=== PATIENT | female | born 1940 | race Caucasian/White ===

== ENCOUNTER 2017-01-22 09:00 | Inpatient (IN) ==
[2017-01-17 14:42] LABS: Appearance,Urine CLEAR; Bilirubin,Urine NEG (NEG); Color,Urine YELLOW; Glucose,Urine (UA) NEGATIVE (NEG); Leukocyte Esterase,Urine NEG /uL (NEG); Nitrate,Urine NEG (NEG); Protein,Urine NEG (NEG); Specific Gravity,Urine 1.024 (1.000-1.035); Urine Blood NEG mg/dL (<0.03); Urobilinogen,Urine NEG (NEG)
[2017-01-17 15:17] LABS: Blood Urea Nitrogen 20 mg/dl (8-23)
[2017-01-17 16:52] LABS: Basophils # (Auto) 0 K/mcL (0.0-0.3); Basophils % (Auto) 0.5 % (0.0-2.0); Eosinophils # (Auto) 0.6 K/mcL (0.0-0.7); Granulocytes % (Auto) 52.7 % (38.0-78.0); Lymphocytes # (Auto) 3.1 K/mcL (1.5-4.8); Lymphocytes % (Auto) 32.7 % (15.5-49.0); Mean Cell Volume 86.9 fL (80.0-100.0); Mean Corpuscular HGB Conc 32.8 g/dL (31.0-36.0); Mean Corpuscular Hemoglobin 28.5 pg (26.0-34.0); Monocytes # (Auto) 0.8 K/mcL (0.1-0.9); Monocytes % (Auto) 8.1 % (1.0-12.0); Platelet Count 215 K/mcL (140-440); RBC 4.84 M/mcL (4.00-5.20); Red Cell Distribution Width 12.8 % (11.5-14.5)
[~2017-01-22 09:00] MED LIST: CELECOXIB 200 MG CAPSULE PO SCH; KETOROLAC 30 MG, ROPIVACAINE HCL/PF 49.5 ML, EPINEPHrine 0.5 MG, 0.9 % SODIUM CHLORIDE ... IJ SCH; PREGABALIN 75 MG CAPSULE PO SCH; ceFAZolin 1 GM VIAL IV SCH; oxyCODONE 10 MG TAB.ER.12H PO SCH
[2017-01-22] MEDS ORDERED: ONDANSETRON 4 MG/2 ML VIAL IV ONE (11:40)
[2017-01-22] MEDS ORDERED: ROPIVACAINE HCL/PF 30 ML VIAL IJ ONE (11:40)
[2017-01-22] MEDS ORDERED: PROPOFOL 200 MG/20 ML VIAL IV ONE (11:40)
[2017-01-22] MEDS ORDERED: PHENYLEPHRINE 10 MG/ML VIAL IV ONE (11:40)
[2017-01-22] MEDS ORDERED: DEXAMETHASONE 10 MG/ML VIAL IV ONE (11:40)
[2017-01-22] MEDS ORDERED: LIDOCAINE HCL/PF 100 MG/5 ML SYRINGE IV ONE (11:40)
[2017-01-22] MEDS ORDERED: TRANEXAMIC ACID 1,000 MG/10 ML VIAL IV ONE (11:40)
[2017-01-22] MEDS ORDERED: MIDAZOLAM 5 MG/5 ML VIAL IV ONE (11:40)
[2017-01-22] MEDS ORDERED: GLYCOPYRROLATE 0.2 MG/ML VIAL IV ONE (11:40)
[2017-01-22] MEDS ORDERED: GENTAMICIN SULFATE 800 MG/20 ML VIAL IR ONE (12:13)
[2017-01-22] MEDS ORDERED: diphenhydrAMINE 50 MG/ML VIAL IV PRN (12:35)
[2017-01-22] MEDS ORDERED: ePHEDrine 50 MG/ML AMPUL IV PRN (12:35)
[2017-01-22] MEDS ORDERED: LACTATED RINGERS 250 ML IV PRN (12:35)
[2017-01-22] MEDS ORDERED: HYDROmorphone 2 MG/ML SYRINGE IV PRN (12:35)
[2017-01-22] MEDS ORDERED: BENZOCAINE/MENTHOL 1 LOZENGE PO PRN ×2 (12:35→13:19)
[2017-01-22] MEDS ORDERED: FLUMAZENIL 0.1 MG/ML ML IV PRN (12:35)
[2017-01-22] MEDS ORDERED: MEPERIDINE 50 MG/ML SYRINGE IM PRN (12:35)
[2017-01-22] MEDS ORDERED: fentaNYL 100 MCG/2 ML VIAL IV PRN (12:35)
[2017-01-22] MEDS ORDERED: NALOXONE HCL 0.4 MG/ML VIAL IV PRN (12:35)
[2017-01-22] MEDS ORDERED: METHOCARBAMOL 1,000 MG/10 ML VIAL IV PRN (12:35)
[2017-01-22] MEDS ORDERED: MEPERIDINE 25 MG/ML SYRINGE IV PRN (12:35)
[2017-01-22] MEDS ORDERED: IPRATROPIUM/ALBUTEROL 3 ML AMPUL.NEB NEB PRN (12:35)
[2017-01-22] MEDS ORDERED: PROMETHAZINE 25 MG/ML VIAL IV PRN (12:35)
[2017-01-22] MEDS ORDERED: PROMETHAZINE 25 MG/ML VIAL IM PRN ×2 (12:35→13:19)
[2017-01-22] MEDS ORDERED: ONDANSETRON 4 MG/2 ML VIAL IV PRN ×2 (12:35→13:19)
[2017-01-22] MEDS ORDERED: LACTATED RINGERS 1,000 ML IV SCH (12:45)
[2017-01-22] MEDS ORDERED: KETOROLAC 30 MG, ROPIVACAINE HCL/PF 49.5 ML, EPINEPHrine 0.5 MG, 0.9 % SODIUM CHLORIDE ... IJ ONE (12:57)
[2017-01-22] MEDS ORDERED: TRANEXAMIC ACID 1,000 MG/10 ML VIAL IV SCH (13:19)
[2017-01-22] MEDS ORDERED: METHOCARBAMOL 750 MG TABLET PO PRN (13:19)
[2017-01-22] MEDS ORDERED: HYDROcodone/APAP 10/325MG TABLET PO PRN (13:19)
[2017-01-22] MEDS ORDERED: BISACODYL 10 MG SUPP.RECT PR PRN (13:19)
[2017-01-22] MEDS ORDERED: FLEETS ADULT ENEMA PR PRN (13:19)
[2017-01-22] MEDS ORDERED: MAGNESIUM HYDROXIDE 30 ML ORAL.SUSP PO PRN (13:19)
[2017-01-22] MEDS ORDERED: POLYETHYLENE GLYCOL 3350 17 GM PACKET PO PRN (13:19)
--- NOTE | 2017-01-22 13:19 | Brief Operative Note ---
Date of procedure: 01/22/17 Pre-op diagnosis: left knee osteoarthritis Post-op diagnosis: same Procedure: left total knee arthroplasty Grafts/Implants: Yes Anesthesia: spinal Complications: none Surgeon: Paulo West Owner Operator: Armando Coto Estimated blood loss (cc): 100 Tourniquet Time (Minutes): 60 Specimens Removed/Pathology: none sent Condition: stable Disposition: PACU
--- NOTE | 2017-01-22 14:27 | Operative Note ---
DATE OF OPERATION: 01/22/2017 PREOPERATIVE DIAGNOSIS: Degenerative joint disease, left knee. POSTOPERATIVE DIAGNOSIS: Degenerative joint disease, left knee. PROCEDURE: Left total knee arthroplasty. SURGEON: Kiet West M.D. METAL OR WOOD BLOCKER SURGEON: Armando Coto PA-C. ANESTHESIA: Spinal with LMA assist. ESTIMATED BLOOD LOSS: 100 mL. COMPLICATIONS: None noted. SPECIMENS REMOVED: None. DRAINS: None. TOURNIQUET TIME: 1 hour at 300 mmHg. IMPLANTS: DePuy CMW2 bone cement 20 grams x5; DePuy Attune femoral posterior stabilized size 7 left cemented; DePuy Attune tibial insert fixed bearing posterior stabilized size 7, 6 mm AOX; DePuy Attune tibial base fixed bearing size 5 cemented; DePuy Attune patella medialized dome 38 mm cemented AOX. INDICATIONS: The patient has had a long-standing history of worsening pain in the knee that has failed conservative treatment. Radiographs have confirmed advanced degenerative joint disease. After a long discussion about treatment options, the patient elected to proceed with a knee arthroplasty. The risks and benefits were discussed with the patient in detail including, but not limited to, the risks of anesthesia, problems with the heart or lungs related to anesthesia, infection, compromise or injury to the nerves and blood vessels, deep venous thrombosis, pulmonary embolism, pneumonia, continued pain after surgery, worsening pain or symptoms after surgery, swelling, loss of motion, instability, leg length discrepancy, and need for repeat surgery. DESCRIPTION OF PROCEDURE: The patient was seen in the pre-anesthesia waiting room where all questions were answered and the correct side and site were identified and marked. The patient was transferred to the operating room and administered the anesthetic and given pre-operative antibiotics. A time-out was then called. The extremity was prepped and draped, exsanguinated, and the tourniquet was inflated to 300 mmHg. A midline skin incision was then made with a standard medial parapatellar arthrotomy. Debridement of the menisci, ACL, and PCL was performed followed by balancing releases in the medial lateral plane. We then established intramedullary access to both the femur and tibia in a standard fashion. The femoral guide jack was initially placed with the distal femoral guide, pinned into place, and the distal femoral cut was performed and checked with a flat plate. We then turned our attention to the tibia. The intramedullary guide was placed with the proximal tibial cutting block. The block was appropriately positioned off the affected side, varus and valgus was checked with the extra-medullary guide, and the block was pinned into place. The proximal tibial cut was performed and the tibia was prepared for the tibial implant with appropriate rotation. The tibia, femur, and posterior compartment were debrided of osteophytes, loose bodies, and meniscal fragments We then used the gap balancing technique to balance extension with the first two cuts and good balancing was obtained with a 10 millimeter gap block. We turned our attention back to the femur and used the referencing block and implant to size appropriately. Using the gap balancing technique for the flexion space we set our rotation of the femur off the tibial cut. Anesthesia gave the patient 1 gram of Tranexamic Acid via an intravenous route. We placed the 4 in 1 cutting block and made anterior, posterior, and chamfer cuts. Box plasty cuts were then made in a standard fashion for the posterior stabilized prosthesis. We then completed osteophyte release and posterior capsule release from the posterior compartment. Trials were placed and we chose the polyethylene insert thickness that provided the best stability in all planes. With the trials in place, we did a measured resection for a resurfacing patella. We sized the patella and placed the patella trial and performed a lateral facetectomy with the saw and rongeur. Good tracking was obtained. We removed all trials, irrigated and dried all cut surfaces. We cemented the components into place including tibia, femur and patella. We placed a trial liner and held the knee in full extension with the patella compressed while the cement cured. We then removed all excess cement and placed the final polyethylene tibiofemoral component. Irrigation with 3 liters of antibiotic saline was then performed using jet-lavage. We let the tourniquet down and coagulated bleeding vessels. We injected a 100 cubic centimeter volume including Ropivacaine 49.25 cubic centimeters at 5 milligrams per cubic centimeter, Ketorolac 30 milligrams, and Epinephrine 0.5 milligrams into 100 cubic centimeters volume of normal saline. We placed a deep drain and closed the retinaculum with looped #0 Maxon. We closed the subcutaneous tissue and skin in layers out to arianna in the skin. A sterile pressure dressing was applied. All needle and sponge counts were correct. The patient was transferred to the recovery room in stable condition. PAUL:farnaz Job ID: [id number] Doc ID: [id number] Kiet West MD
[2017-01-22] MEDS: 0.9 % SODIUM CHLORIDE 1,000 ML IV SCH ×2 (14:55→23:56)
[2017-01-22] MEDS: 0.9 % SODIUM CHLORIDE 10 ML SYRINGE IV SCH ×2 (15:36→23:23)
--- NOTE | 2017-01-22 16:02 | XRay Report ---
HISTORY: Reason for Exam:Post-Op Total Knee FINDINGS: There is a well positioned total knee prosthesis. No fracture or abnormal soft tissue calcification are present. IMPRESSION: Well-positioned left knee prosthesis Interpreted and Authenticated by: Jose Daniel Martino 01/22/17
[2017-01-22] MEDS: KETOROLAC 15 MG/ML VIAL IV SCH ×2 (17:50→23:56)
[2017-01-22] MEDS: NORTRIPTYLINE 10 MG CAPSULE PO SCH (20:29)
[2017-01-22] MEDS: ceFAZolin 1 GM VIAL IV SCH (20:29)
[2017-01-22] MEDS: SENNOSIDES 1 TABLET PO SCH (20:30)
[2017-01-22] MEDS: ASPIRIN 325 MG ENTERIC COATED TABLET PO SCH (20:30)
[2017-01-22] MEDS: DOCUSATE SODIUM 100 MG CAPSULE PO SCH (20:30)
[2017-01-23] MEDS: ceFAZolin 1 GM VIAL IV SCH (05:04)
--- NOTE | 2017-01-23 06:30 | Orthopedic Progress Note ---
Subjective Patient information: Note initiated : 01/23/17 at 6:28 am Service Date, if different from initiated Date: [] Patient: Jackie Yancey 76 y/o F admitted on 01/22/17 for Left Total Knee Arthroplasty *Depuy*. Chief Complaint: [] Interval history: doing well. confused. not complaining of pain Objective Vital signs: Vital Signs Temp Pulse Resp BP Pulse Ox 01/23/17 04:00 97.8 F 119 H 16 134/72 92 01/23/17 00:00 98.2 F 110 H 16 140/85 91 01/22/17 19:56 97.8 F 101 H 16 115/72 92 01/22/17 16:00 97.8 F 16 127/78 98 01/22/17 15:30 97.6 F 16 124/81 98 01/22/17 15:15 97.8 F 16 135/71 95 01/22/17 15:00 98.0 F 16 126/83 97 01/22/17 14:45 97.6 F 16 129/87 97 01/22/17 14:20 93 H 20 113/60 95 01/22/17 14:05 90 20 113/60 97 01/22/17 13:50 97.3 F 89 11 L 99/51 99 01/22/17 09:20 97.9 F 18 136/73 99 Intake and Output 01/22/17 01/23/17 01/23/17 21:59 05:59 13:59 Intake Total 1525 / 1525 Output Total 1000 / 1000 450 / 450 Balance -1000 / -1000 1075 / 1075 Intake: IV 1000 / 1000 Sodium Chloride 0.9% 1, 1000 / 1000 000 ml @ 125 mls/hr IV . Q8H JANNA Rx#:[id number] Oral 525 / 525 Output: Urine Catheter Amount 1000 / 1000 Void Amount 450 / 450 Other: # Voids 1 1 Weight 169 lb Intake & Output: Intake & Output 01/22/17 01/23/17 01/23/17 21:59 05:59 13:59 Intake Total 1525 / 1525 Output Total 1000 / 1000 450 / 450 Balance -1000 / -1000 1075 / 1075 Weight 169 lb Intake: IV 1000 / 1000 Sodium Chloride 0.9% 1, 1000 / 1000 000 ml @ 125 mls/hr IV . Q8H JANNA Rx#:[id number] Oral 525 / 525 Output: Urine Catheter Amount 1000 / 1000 Void Amount 450 / 450 Other: # Voids 1 1 Incision: Yes healing Incision clean and dry: Yes Dressing: Yes clean, Yes dry, Yes intact Weight bearing status: full Neurological exam IM: Yes alert, Yes normal gait, Yes oriented X3, Yes neurovascular intact Extremities exam IM: No calf tenderness, Yes Foot pink and warm, Yes neurovascular intact - Labs CBC & BMP: 01/17/17 13:37 01/17/17 13:37 Labs: Orthopedic Labs 01/17/17 13:37 PT 13.7 INR 1.0 01/17/17 13:37 Hgb 13.8 Hct 42.1 Assessment and Plan (1) Total knee replacement status pod 1 s/p tka wbat pain control dvt prophylaxis d/c planning Status: Acute Qualifiers:
[2017-01-23] MEDS: KETOROLAC 15 MG/ML VIAL IV SCH ×3 (08:39→17:50)
[2017-01-23] MEDS: LEVOTHYROXINE SODIUM 112 MCG TABLET PO SCH (08:40)
[2017-01-23] MEDS: 0.9 % SODIUM CHLORIDE 10 ML SYRINGE IV SCH ×3 (08:40→22:11)
[2017-01-23] MEDS: DOCUSATE SODIUM 100 MG CAPSULE PO SCH ×2 (08:40→21:54)
[2017-01-23] MEDS: ASPIRIN 325 MG ENTERIC COATED TABLET PO SCH ×2 (08:40→21:54)
[2017-01-23] MEDS: traMADol 50 MG TABLET PO PRN ×2 (09:41→15:27)
--- NOTE | 2017-01-23 19:58 | Internal Medicine Consult Note ---
Medical - CN: HPI - Data of Consult Patient: new to practice Requesting Physician: Paulo West Primary Care Provider: Jann Galloway Family Provider: Jann Galloway - Consult Narrative Reason for consult: postop confusion,tachycardia History of present illness: Ms. Yancey is a 76 year old female was admitted n January 22 for a left total knee arthroplasty. The surgery went well. However the patient has beenquite confused ever since the surgery. the nurses note the patient keeps thinking that she is at home she has pulled out her IV, and removed her surgical dressing. The patient has received IV Toradol and by mouth Ultram for pain control, but fairly minimal doses of those. she is refusing IV fluids, and urine output has dropped off today. I met with her this evening, and she is clearly confused. She stated several times that she was at home and not in the hospital. When she was convinced she was in the hospital, she could not come up with the name of the hospital for 10 or 15 minutes. She knew it was the of the , but could not recall the name of the month. She did know the year was 2016. She stated she lives with her sister, which she does not. She asked several times if it was time for "Dr. Morrow" on TV. She did not seem to believe that it was late in the evening as opposed to early in the day. when asked about symptoms, she stated she was having a lot of pain in her left knee, but then radiated as 5 out of 10. While she was talking to me she repeatedly flexed and extended her knee, and it did not seem to bother her. she denies any past history of memory issues or confusion. She is reporting some itchy ears today and also feels that her voice is a little hoarse. She reports a dry mouth. She otherwisedenies headaches or dizziness, blurry vision , sore throat, chest pain or palpitations, shortness of breath, abdominal pain, nausea or vomiting. She reports occasional diarrhea at home, but none recently. She denies dysuria. unfortunately, her history is clearly unreliable. I did touch base with her sister,Darlin Arrington. Mrs. Arrington says that her sister has never had any memory issues that she is aware of. Mrs. Arrington, however, lives in [place], [place], and it appears does not see the patient all that often. past medical history: Severe right knee osteoarthritis Depression History of peptic ulcer disease hypothyroidism Past surgical history: Right knee arthroscopy, right hip replacement, left hip replacement, cholecystectomy, surgery for perforated ulcer home medications: Nortriptyline 10 mg daily at bedtime Levothyroxin 112 g daily Ocuvite multivitamin daily current inpatient medications: norco 10/325 every 4 hours when necessaryAspirin 325 mg twice a day ducolax suppository when necessary Colace 100 mg twice a day Dilaudid every 2 hours when necessary Toradol 15 mg every 6 hours Synthroid 0.112 daily Milk of magnesia when necessary Robaxin 750 mg every 6 hours when necessary Objective on 10 mg daily at bedtime Zofran 4 mg every 4 hours when necessary MiraLAX 17 g daily when necessary Phenergan 12.5 mg IM every 6 hours when necessary Senna 2 tabs daily at bedtime Fleets enema when necessary Cepacol throat lozenges when necessary Tramadol every 4 hours when necessary allergies: No known drug allergies Family history: father had OR. Mother had osteoporosis.the patient notes her mother also had severe osteoarthritis. She has one sister who is alive and well. Social history: Patient denies use of alcohol, drugs, tobacco . According to her sister, she lives alone. She does have a small dog. CC: Paulo West Medical - CN: Meds Home Medications Medication Instructions Recorded Confirmed Type Levothyroxine Sodium [Levoxyl] 112 mcg PO ACB 01/17/17 01/22/17 History Nortriptyline [Pamelor] 10 mg PO HS 01/17/17 01/22/17 History Vit A,C & E/Lutein/Minerals 1 tab PO DAILY 01/17/17 01/22/17 History [Ocuvite] Allergies Allergy/AdvReac Type Severity Reaction Status Date / Time No Known Drug Allergies Allergy Verified 02/15/16 15:43 Medical - CN: Exam - Constitutional Vitals: Temp Pulse Resp BP Pulse Ox 97.7 F 119 H 16 94/58 95 01/23/17 16:00 01/23/17 04:00 01/23/17 16:00 01/23/17 16:00 01/23/17 17:06 on exam, she is a well-developed well-nourished elderly female, in no acute distress, but is fidgety,rearranging her bedding and frequently flexing her legs and looking at her dressing.Head: Normocephalic/atraumatic. Eyes: PERRLA, EOMI, anicteric, although there is a bit of a right lid lag. The patient notes she tends to keep her right eye closed due to a long-standing right detached retina Ears: TMs and canals are clear. Pharynx: Pharynx is clear. Teeth are in good repair. Neck:Supple, without obvious lymphadenopathy, JVD, thyromegaly, bruits. Cardiac exam:Shows regular rate and rhythm, with normal S1 and S2. No murmurs, rubs, gallops are noted. Rate is rather tachycardic. Lungs: Are clear to auscultation, without rales, rhonchi, wheezes. Abdomen: Is soft and nontender, without obvious masses. Bowel sounds are normoactive. Extremities: Right leg is normal, without obvious cyanosis, clubbing, edema. Left lower extremity as a waterproof bandage covering her left knee incision. There is no obvious. Incisional erythema or drainage. The entire lower extremity is fairly swollen. Neurologic: The patient is awake, but confused Consciousness seems to wax and wane a bit. She is able to follow most commands Cranial nervesare grossly intact. Motor exam is nonfocal, and shows reasonably good strength. Cerebellar exam shows intact [id number]-ax-[id number] and [id number]-[id number] exam. There is no pronator drift. Skin exam: Does not show obvious rashes or other worrisome lesions. Medical - CN: Result - Labs CBC & Chem 7: 01/23/17 20:32 01/23/17 20:32 Labs: Short CBC 01/23/17 Range/Units 13:48 Hgb 10.6 L (12.0-15.0) g/dL Hct 31.8 L (36.0-48.0) % January 23: EKG: Shows normal sinus rhythm at a rate of 93, without acute ischemic changes. CBC, inpatient panel,.BNP- are pending. Troponin is normal at less than 0.01 urinalysis from January 17 was normal. January 17, 2017:EKG:Normal sinus rhythm at a rate of 82, without obvious ischemic changes. Medical - CN: A/P (1) Delirium due to medical condition with behavioral disturbance Status: Acute (2) Tachycardia Status: Acute (3) Sleep disturbance Status: Acute (4) History of duodenal ulcer Status: Chronic - Narrative A/P Narrative: #1. Neurologic. -This patient appears to be suffering from an acute medical delirium. I suspect this is due to effects of anesthesia and postop medications. However, she could certainly have an undiagnosed underlying dementia. She did not sleep last night, and this is likely aggravating things. -I asked the nurses to go ahead and give her IV Dilaudid for her knee pain, in an effort to both control pain and to help her sleep. -Discontinue tramadol in case she is reacting to this -Toradol should be discontinued soon. -rule out other occult issues,check urinalysis and chest x-ray , BNP. check follow-up chemistries and CBC. -sensorium does not clear soon, consider head CT. -symptoms do not seem consistent with PE, as She is not short of breath ,does not have chest pain, and O2 saturations on room air are normal. -urine output is decreasing, and patient has been refusing IV fluids and according to nurses not drinking oral fluids very well. she is also tachycardic , which could indicate a low volume status. Once she gets to sleep, we will resume IV fluids. #2. GI. Patient has a history of a perforated duodenal ulcer. Aspirin may not be the best medication for DVT prophylaxis, for her . I would consider using either subcutaneous Lovenox or Coumadin, as these are less likely to cause recurrent ulcers. -Add proton pump inhibitor. #3. Hypothyroidism. continue levothyroxine. #4.detached retina. Thank you for asking me to evaluate this patient. I will be happy to follow her along with you. approximately 60 minutes was spent this evening, reviewing patient's old records , interviewing and examining her, discussing plan of care with nursing staff, and writing orders.
[2017-01-23] MEDS: HYDROmorphone 2 MG/ML SYRINGE IV PRN ×3 (20:53→22:04)
[2017-01-23 21:49] LABS: ALT/SGPT 10 U/l (0-40); Albumin 3.2 gm/dL (3.2-5.2); Albumin/Globulin Ratio 1.5 (1.0-2.3); Alkaline Phosphatase 70 U/L (39-117); Bilirubin,Direct < 0.2 mg/dL (0.0-0.3); Blood Urea Nitrogen 25 mg/dl (8-23); Gamma Glutamyl Transpeptidase 8 U/L (5-36); Magnesium 1.9 mg/dL (1.6-2.5); proBNP 565.6 pg/ml (0-450)
[2017-01-23] MEDS: NORTRIPTYLINE 10 MG CAPSULE PO SCH (21:51)
[2017-01-23] MEDS: SENNOSIDES 1 TABLET PO SCH (21:54)
[2017-01-23 21:56] LABS: Basophils # (Auto) 0.1 K/mcL (0.0-0.3); Basophils % (Auto) 0.6 % (0.0-2.0); Eosinophils # (Auto) 0.2 K/mcL (0.0-0.7); Eosinophils % (Auto) 1.2 % (0.0-7.0); Granulocytes % (Auto) 68.6 % (38.0-78.0); Lymphocytes # (Auto) 2.6 K/mcL (1.5-4.8); Lymphocytes % (Auto) 20.7 % (15.5-49.0); Mean Cell Volume 84.6 fL (80.0-100.0); Mean Corpuscular Hemoglobin 27.9 pg (26.0-34.0); Monocytes # (Auto) 1.1 K/mcL (0.1-0.9); Monocytes % (Auto) 8.9 % (1.0-12.0); Platelet Count 168 K/mcL (140-440); RBC 3.58 M/mcL (4.00-5.20); Red Cell Distribution Width 12.2 % (11.5-14.5)
[2017-01-23] MEDS ORDERED: ceFAZolin 1 GM VIAL ONE (23:10)
[2017-01-23] MEDS: 0.9 % SODIUM CHLORIDE 1,000 ML IV SCH (23:19)
[2017-01-24] MEDS: KETOROLAC 15 MG/ML VIAL IV SCH ×3 (01:11→13:45)
[2017-01-24] MEDS: 0.9 % SODIUM CHLORIDE 10 ML SYRINGE IV SCH ×3 (05:32→20:46)
[2017-01-24] MEDS: 0.9 % SODIUM CHLORIDE 1,000 ML IV SCH ×4 (05:58→14:40)
[2017-01-24 06:33] LABS: ALT/SGPT 10 U/l (0-40); Albumin 3.1 gm/dL (3.2-5.2); Albumin/Globulin Ratio 1.3 (1.0-2.3); Alkaline Phosphatase 72 U/L (39-117); Bilirubin,Direct < 0.2 mg/dL (0.0-0.3); Blood Urea Nitrogen 25 mg/dl (8-23); Gamma Glutamyl Transpeptidase 9 U/L (5-36); Uric Acid 5.7 mg/dL (2.5-8.0)
--- NOTE | 2017-01-24 06:46 | Orthopedic Progress Note ---
Subjective Patient information: Note initiated : 01/24/17 at 6:44 am Service Date, if different from initiated Date: [] Patient: Jackie Yancey 76 y/o F admitted on 01/22/17 for Left Total Knee Arthroplasty *Depuy*. Chief Complaint: [] Interval history: doing well. pain under control. seems to be clearing up mentally Objective Vital signs: Vital Signs Temp Pulse Pulse Resp BP Pulse Ox 01/24/17 04:00 98.0 F 92 H 12 107/70 97 01/24/17 02:38 95 H 10 L 96 01/24/17 01:36 10 L 93 01/24/17 01:33 98 H 98 H 10 L 93 01/23/17 20:00 98.0 F 95 H 12 103/92 96 01/23/17 17:06 95 01/23/17 16:00 97.7 F 16 94/58 94 01/23/17 11:54 97.9 F 16 140/79 95 01/23/17 07:10 97.9 F 16 142/78 95 01/23/17 07:02 95 Intake and Output 01/23/17 01/24/17 01/24/17 21:59 05:59 13:59 Intake Total 240 / 240 953 / 953 Output Total 50 / 50 125 / 125 Balance 190 / 190 828 / 828 Intake: IV 833 / 833 Sodium Chloride 0.9% 1, 833 / 833 000 ml @ 125 mls/hr IV . Q8H JANNA Rx#:[id number] Oral 240 / 240 120 / 120 Output: Void Amount 50 / 50 125 / 125 Other: Meal Dinner Percent of Meal Consumed 75% Weight 165 lb 8 oz Intake & Output: Intake & Output 01/23/17 01/24/17 01/24/17 21:59 05:59 13:59 Intake Total 240 / 240 953 / 953 Output Total 50 / 50 125 / 125 Balance 190 / 190 828 / 828 Weight 165 lb 8 oz Intake: IV 833 / 833 Sodium Chloride 0.9% 1, 833 / 833 000 ml @ 125 mls/hr IV . Q8H JANNA Rx#:[id number] Oral 240 / 240 120 / 120 Output: Void Amount 50 / 50 125 / 125 Other: Meal Dinner Percent of Meal Consumed 75% Incision: Yes healing, Yes clean and dry Incision clean and dry: Yes Dressing: Yes clean, Yes dry, Yes intact Weight bearing status: full Neurological exam IM: Yes alert, Yes normal gait, Yes oriented X3, Yes motor sensory intact, Yes neurovascular intact Extremities exam IM: No calf tenderness, Yes Foot pink and warm, Yes neurovascular intact - Labs CBC & BMP: 01/24/17 04:53 01/24/17 04:53 Labs: Orthopedic Labs 01/17/17 13:37 PT 13.7 INR 1.0 01/24/17 01/23/17 01/23/17 04:53 20:32 13:48 Hgb 10.0 L 10.0 L 10.6 L Hct 29.8 L 30.2 L 31.8 L 01/17/17 13:37 Hgb 13.8 Hct 42.1 Assessment and Plan (1) Total knee replacement status pod 2 s/p tka wbat pain control dvt prophylaxis d/c planning- possibly rehab tomorrow Status: Acute Qualifiers:
--- NOTE | 2017-01-24 06:48 | Discharge Summary ---
Ortho Discharge - TKA - Patient Instructions Diet: Regular Diet Activity: activity as tolerated, ambulate with assistive device, weight bearing as tolerated Total Knee Protocol: For Total Knee: Start ROM FRANCISCO with stationary bike or rocking chair. Work on gaining full extension of knee. Posterior dislocation precautions provided. Hip abductor strengthening and gait training instructions provided. Apply Cryocuff as instructed. Dressing Care: May shower in 2 days Patient Education: Total Knee Replacement (DC) Additional Instructions: Discharge Instructions: Do the exercises at home that physical therapy gave you. Take your prescription, photo ID, insurance cards, and current medication list with you to your first physical therapy appointment. Take your prescription to poultry picker any medication or equipment (such as walker, crutches, toilet riser or C.P.M.) Wear comfortable clothing for your physical therapy. Weight bearing as tolerated. You have Dermabond (a dressing with a mesh-like appearance), leave open to air. Do not remove this dressing. You may start showering on post op day #2. The Dermabond dressing can get wet, do not scrub dressing. Pat dry. To avoid constipation while taking any narcotic pain medication, take an over the counter stool softener/laxative. Use your Cryocuff or ice packs as directed, on for 20 minutes at a time throughout the day. This and elevation will help with pain and swelling. Call your physician for fevers above 100.5 or pain not controlled by medication. Your prescriptions are with your discharge information. Some medications were electronically transmitted to your pharmacy of choice. - Problem Maintenance (1) Total knee replacement status Status: Acute Qualifiers: - Follow Up Plan Follow Up Appointments: Tyler Valentin PA-C [Physician Carpet Installation Specialist] - 02/06/17 8:40 am Disposition: Xfer SNF Prognosis: Good Rehab Potential: Good I certify that the patient requires SNF services: Yes Overall status at discharge: patient is progressing back to baseline - Orders For Discharge Prescriptions: Docusate Sodium [Colace] 100 mg PO BID #60 capsule
[2017-01-24] MEDS: PANTOPRAZOLE 40 MG VIAL IV SCH (07:39)
[2017-01-24] MEDS: LEVOTHYROXINE SODIUM 112 MCG TABLET PO SCH (07:41)
[2017-01-24 07:47] LABS: Appearance,Urine HAZY; Bacteria,Urine 0 /hpf (0); Bilirubin,Urine NEG (NEG); Calcium Oxalate Crystals,Urine MOD /hpf (0); Color,Urine YELLOW; Glucose,Urine (UA) NEGATIVE (NEG); Leukocyte Esterase,Urine NEG /uL (NEG); Mucus,Urine MOD /hpf (0); Nitrate,Urine NEG (NEG); Protein,Urine 30 mg/dL (NEG); Specific Gravity,Urine 1.031 (1.000-1.035); Urine Blood NEG mg/dL (<0.03); Urine Hyaline Cast 13 /lpf (0-2); Urine RBC 4 /hpf (0-1); Urine Squamous Epithelial Cell 1 /hpf (0-4); Urine WBC 12 /hpf (0-4); Urobilinogen,Urine NEG (NEG)
--- NOTE | 2017-01-24 08:16 | XRay Report ---
HISTORY: Reason for Exam:confusion, tachycardia FINDINGS: The lungs are clear and well expanded. The heart size and pulmonary vasculature are normal. Patient is rotated to the left which distorts the mediastinum. No mass or adenopathy are detected. IMPRESSION: Normal exam Interpreted and Authenticated by: Jose Daniel Martino 01/24/17
[2017-01-24] MEDS: DOCUSATE SODIUM 100 MG CAPSULE PO SCH ×2 (08:41→20:43)
[2017-01-24] MEDS: ASPIRIN 325 MG ENTERIC COATED TABLET PO SCH ×2 (08:41→20:43)
--- NOTE | 2017-01-24 10:51 | Internal Med Progress Note ---
Medical - PN: Subj Patient information: Note initiated : 01/24/17 at 10:51 am Patient: Jackie Yancey a 76 y/o F admitted on 01/22/17 for Left Total Knee Arthroplasty *Depuy*. Interval history: January 23, 2017:Reason for consult: postop confusion,tachycardia. History of present illness: Ms. Yancey is a 76 year old female was admitted n January 22 for a left total knee arthroplasty. The surgery went well. However the patient has beenquite confused ever since the surgery. the nurses note the patient keeps thinking that she is at home she has pulled out her IV, and removed her surgical dressing. The patient has received IV Toradol and by mouth Ultram for pain control, but fairly minimal doses of those. she is refusing IV fluids, and urine output has dropped off today. I met with her this evening, and she is clearly confused. She stated several times that she was at home and not in the hospital. When she was convinced she was in the hospital, she could not come up with the name of the hospital for 10 or 15 minutes. She knew it was the of the , but could not recall the name of the month. She did know the year was 2016. She stated she lives with her sister, which she does not. She asked several times if it was time for "Dr. Morrow" on TV. She did not seem to believe that it was late in the evening as opposed to early in the day. when asked about symptoms, she stated she was having a lot of pain in her left knee, but then radiated as 5 out of 10. While she was talking to me she repeatedly flexed and extended her knee, and it did not seem to bother her. she denies any past history of memory issues or confusion. She is reporting some itchy ears today and also feels that her voice is a little hoarse. She reports a dry mouth. She otherwise denies headaches or dizziness, blurry vision , sore throat, chest pain or palpitations, shortness of breath, abdominal pain, nausea or vomiting. She reports occasional diarrhea at home, but none recently. She denies dysuria. unfortunately, her history is clearly unreliable. I did touch base with her sister,Darlin Arrington. Mrs. Arrington says that her sister has never had any memory issues that she is aware of. Mrs. Arrington, however, lives in [place], [place], and it appears does not see the patient all that often. January 24: the nurses ended up giving the patient 3 doses of IV Dilaudid last night and she finally fell asleep. may were then able to restart her IV fluids This morning, the patient says she finally did get a good night sleep. She is feeling better. She is more alert and interactive, but continues to have spells of confusion. she did do pretty well with physical therapy this morning. Her sister is here with her this morning, and says that while she seems to have normal conversations, when staff leaves the room, the sister tells her that she thinks the room is Tae and that they are being monitored. her sister is understandably concerned about this unusual behavior, as she has never seen at and the patient before. today, the patient is able to tell me the day, date, year and claims vice president as well as the name of the hospital. She is definitely more alert. She denies subjective fever or chills, sore throat or cough, chest pain , shortness of breath, nausea vomiting or diarrhea, dysuria. She does state she feels like she needs to have a bowel movement. She reports ongoing left knee pain, but continues to flex and extend it at will, such that the dressing is again falling off. Nursing staff reports that she continues to be quite impulsive. - Constitutional Vitals: Vital Signs Temp Pulse Resp BP Pulse Ox 98.3 F 92 H 16 120/67 94 01/24/17 07:27 01/24/17 04:00 01/24/17 07:27 01/24/17 07:27 01/24/17 07:27 Period Temp Pulse Resp BP Sys/Espinosa Pulse Ox Last 24 Hr 97.7 F-98.3 F 92-98 10-16 94-140/58-92 85-97 Intake and Output 01/23/17 01/24/17 01/24/17 21:59 05:59 13:59 Intake Total 240 / 240 953 / 953 460 / 460 Output Total 50 / 50 125 / 125 400 / 400 Balance 190 / 190 828 / 828 60 / 60 Weight 165 lb 8 oz Intake & Output: Intake & Output 05/31/17 06/01/17 06/01/17 21:59 05:59 13:59 Intake Total 240 / 240 953 / 953 460 / 460 Output Total 50 / 50 125 / 125 400 / 400 Balance 190 / 190 828 / 828 60 / 60 Weight 165 lb 8 oz Intake: IV 833 / 833 Sodium Chloride 0.9% 1, 833 / 833 000 ml @ 125 mls/hr IV . Q8H ON LICENSE OF [facility] Rx#:[id number] Oral 240 / 240 120 / 120 460 / 460 Output: Void Amount 50 / 50 125 / 125 400 / 400 Other: Meal Dinner Breakfast Percent of Meal Consumed 75% 100% Feeding Ability Independent # Voids 1 # Bowel Movements 0 I first saw the patient walking in the [place]eters with physical therapy, and she was doing well. I then saw her again in her room, when she was sitting in a chair. She is talkative, alert, cooperative.Neck is supple without obvious lymphadenopathy. Cardiac exam shows regular rate and rhythm. Lungs are clear to auscultation. Abdomen is soft and nontender. extremities:Right lower extremity shows no significant edema. Left lower extremity is quite edematous. incision is covered, without obvious signs of erythema or drainage. she seems to be moving the knee without too much discomfort. neurologic: The patient is much more alert and oriented this morning. Cranial nerves are grossly intact. Motor exam is grossly nonfocal. Unfortunately, her sister reports that she continues to have some paranoid ideation. Medical - PN: Obj Da - Labs CBC & Chem 7: 01/24/17 04:53 01/24/17 04:53 Labs: Abnormal Lab Results 01/24/17 01/24/17 01/24/17 06:36 04:53 04:53 WBC RBC Hgb 10.0 L Hct 29.8 L Gran # Smyth # BUN 25 H Glucose NT-Pro-B Natriuret Pep Total Protein 5.5 L Albumin 3.1 L Urine Protein 30 A Urine Ketones 5/tr A Urine RBC 4 H Urine WBC 12 H Calcium Oxalate Crystal Mod A Hyaline Casts 13 H 01/23/17 01/23/17 01/23/17 20:32 20:32 13:48 WBC 11.6 H RBC 3.58 L Hgb 10.0 L 10.6 L Hct 30.2 L 31.8 L Gran # 8.8 H Smyth # 1.1 H BUN 25 H Glucose 107 H NT-Pro-B Natriuret Pep 565.6 H Total Protein 5.4 L Albumin Urine Protein Urine Ketones Urine RBC Urine WBC Calcium Oxalate Crystal Hyaline Casts January 24: heart rate remains fairly fast, ranging from 92-117. O2 saturation on room air is 99%. She was noted to drop her O2 saturation to 85%during sleep. urine output did improve overnight, after IV fluids. urinalysis: Shows pH of 5.0,30 mg protein, 5 ketones, 12 white blood cells moderate calcium oxalate crystals, 13 hyaline casts. January 23: EKG: Shows normal sinus rhythm at a rate of 93, without acute ischemic changes. chest x-ray: Was a normal exam. CBC, inpatient panel,.BNP- are pending. Troponin is normal at less than 0.01 urinalysis from January 17 was normal. January 17, 2017:EKG:Normal sinus rhythm at a rate of 82, without obvious ischemic changes. Meds: Medications Acetaminophen/Hydrocodone Bitart ([place] 10/325mg) 0 tab PO Q4HP PRN PRN Reason: Pain Aspirin (Ecotrin) 325 mg PO BID ON LICENSE OF [facility] Last Admin: 01/24/17 08:41 Dose: Not Given Bisacodyl (Dulcolax) 10 mg MI Q2-3DAYS PRN PRN Reason: Constipation Docusate Sodium (Colace) 100 mg PO BID ON LICENSE OF [facility] Last Admin: 01/24/17 08:41 Dose: Not Given Hydromorphone HCl (Dilaudid) 0 mg IV Q2HP PRN PRN Reason: Pain Last Admin: 01/23/17 22:04 Dose: 0.5 mg Sodium Chloride (Sodium Chloride 0.9%) 1,000 mls @ 125 mls/hr IV .Q8H ON LICENSE OF [facility] Last Admin: 01/24/17 05:59 Dose: 125 mls/hr Ketorolac Tromethamine (Toradol) 15 mg IV Q6 ON LICENSE OF [facility] Stop: 01/24/17 12:01 Last Admin: 01/24/17 05:31 Dose: 15 mg Levothyroxine Sodium (Synthroid) 112 mcg PO ACB ON LICENSE OF [facility] Last Admin: 01/24/17 07:41 Dose: 112 mcg Magnesium Hydroxide (Milk Of Magnesia) 30 ml PO BIDP PRN PRN Reason: Constipation Methocarbamol (Robaxin) 750 mg PO Q6HP PRN PRN Reason: Muscle Spasm Nortriptyline HCl (Pamelor) 10 mg PO HS ON LICENSE OF [facility] Last Admin: 01/23/17 21:51 Dose: 10 mg Ondansetron HCl (Zofran) 4 mg IV Q4HP PRN PRN Reason: Nausea And Vomiting Pantoprazole Sodium (Protonix) 40 mg IV QAMAC ON LICENSE OF [facility] Last Admin: 01/24/17 07:39 Dose: Not Given Polyethylene Glycol (Miralax) 17 gm PO DAILYP PRN PRN Reason: Constipation Senna (Senokot) 2 tab PO HS ON LICENSE OF [facility] Last Admin: 01/23/17 21:54 Dose: 2 tab Sodium Chloride (Saline Flush) 10 ml IV Q8 ON LICENSE OF [facility] Last Admin: 01/24/17 05:32 Dose: Not Given Throat Lozenges (Cepacol) 1 lozenge PO PRN PRN PRN Reason: Sore Throat Medical - PN: A/P - Time Spent With Patient Total time spent is greater than 50% in coordination of care (as documented) at patient's floor/unit and/or counseling patient: (1) Delirium due to medical condition with behavioral disturbance Status: Acute Current Visit: Yes (2) Tachycardia Status: Acute Current Visit: Yes (3) Sleep disturbance Status: Acute Current Visit: Yes (4) History of duodenal ulcer Status: Chronic Current Visit: Yes - Narrative A/P Narrative: #1. Neurologic. -This patient appears to be suffering from an acute medical delirium. I suspect this is due to effects of anesthesia and postop medications. However, she could certainly have an undiagnosed underlying dementia. -she did have a better night's sleep last night, and is definitely clearer from a mental status standpoint today. I did discuss with her sister, that I'm still suspicious of a mild underlying dementia, but we can certainly continue to follow to see if her mental status clears completely. -I encouraged the sister to pursue discussions with the patient about possibly moving to [place] so they can be closer to one another. The patient does not have any other family. -tramadol was discontinued. I believe Toradol was discontinued also. -Other workup with chest x-ray, EKG, other labs, were unrevealing. Urinalysis is mildly abnormal lara will be cultured. -urine output improved after receiving IV fluids. Continue to encourage oral fluid intake. #2. GI. Patient has a history of a perforated duodenal ulcer. Aspirin may not be the best medication for DVT prophylaxis, for her . I would consider using either subcutaneous Lovenox or Coumadin, as these are less likely to cause recurrent ulcers. -Add proton pump inhibitor. #3. Hypothyroidism. continue levothyroxine. #4.detached retina. #5. Pulmonary. Patient did have O2 desaturations with sleep, but this may have been related to pain medications. Continue to monitor. #6. Hematologic. She does have the expected postoperative anemia. Continue to follow. this visit took approximately 30 minutes today, to review test results interview and examine the patient, review her status with physical therapy, review plan of care with the patient's sister, and write orders. Medical - PN: Qual - VTE Deep Vein Thrombosis/Pulmonary Embolism Present on Admission: No
[2017-01-24] MEDS: NORTRIPTYLINE 10 MG CAPSULE PO SCH (20:43)
[2017-01-24] MEDS: SENNOSIDES 1 TABLET PO SCH (20:44)
[2017-01-25] MEDS: 0.9 % SODIUM CHLORIDE 1,000 ML IV SCH (01:28)
--- NOTE | 2017-01-25 07:41 | Orthopedic Progress Note ---
Subjective Patient information: Note initiated : 01/25/17 at 7:39 am Service Date, if different from initiated Date: [] Patient: Jackie Yancey 76 y/o F admitted on 01/22/17 for Left Total Knee Arthroplasty *Depuy*. Chief Complaint: [] Interval history: doing better. pain under control Objective Vital signs: Vital Signs Temp Pulse Resp BP Pulse Ox 01/25/17 04:00 98.0 F 105 H 20 144/84 96 01/24/17 23:04 98.7 F 105 H 16 129/78 94 01/24/17 20:00 98.4 F 110 H 16 130/71 98 01/24/17 17:00 99 01/24/17 16:00 98.0 F 01/24/17 11:32 98.5 F 12 127/74 99 Intake and Output 01/24/17 01/25/17 01/25/17 21:59 05:59 13:59 Intake Total 240 / 240 400 / 400 Output Total 300 / 300 1500 / 1500 Balance -60 / -60 -1100 / -1100 Intake: Oral 240 / 240 400 / 400 Output: Void Amount 300 / 300 1500 / 1500 Other: # Bowel Movements 1 Weight 167 lb Intake & Output: Intake & Output 01/24/17 01/25/17 01/25/17 21:59 05:59 13:59 Intake Total 240 / 240 400 / 400 Output Total 300 / 300 1500 / 1500 Balance -60 / -60 -1100 / -1100 Weight 167 lb Intake: Oral 240 / 240 400 / 400 Output: Void Amount 300 / 300 1500 / 1500 Other: # Bowel Movements 1 Incision: Yes healing Incision clean and dry: Yes Dressing: Yes clean, Yes dry, Yes intact Weight bearing status: full Neurological exam IM: Yes abnormal gait, Yes alert, Yes oriented X3, Yes motor sensory intact, Yes neurovascular intact Extremities exam IM: No calf tenderness, Yes Foot pink and warm, Yes neurovascular intact - Labs CBC & BMP: 01/25/17 04:25 01/24/17 04:53 Labs: Orthopedic Labs 01/17/17 13:37 PT 13.7 INR 1.0 01/25/17 01/24/17 01/23/17 04:25 04:53 20:32 Hgb 9.3 L 10.0 L 10.0 L Hct 26.9 L 29.8 L 30.2 L 01/23/17 01/17/17 13:48 13:37 Hgb 10.6 L 13.8 Hct 31.8 L 42.1 Assessment and Plan (1) Total knee replacement status pod 3 s/p tka wbat pain control dvt prophylaxis d/c planning- rehab today Status: Acute Qualifiers:
[2017-01-25] MEDS: 0.9 % SODIUM CHLORIDE 10 ML SYRINGE IV SCH ×4 (08:00→20:36)
[2017-01-25] MEDS: PANTOPRAZOLE 40 MG VIAL IV SCH (08:01)
[2017-01-25] MEDS: DOCUSATE SODIUM 100 MG CAPSULE PO SCH ×2 (08:12→20:34)
[2017-01-25] MEDS: ASPIRIN 325 MG ENTERIC COATED TABLET PO SCH ×2 (08:12→20:34)
[2017-01-25] MEDS: LEVOTHYROXINE SODIUM 112 MCG TABLET PO SCH (08:12)
[2017-01-25 09:00] LABS: Basophils # (Auto) 0 K/mcL (0.0-0.3); Basophils % (Auto) 0.3 % (0.0-2.0); Eosinophils # (Auto) 0.4 K/mcL (0.0-0.7); Eosinophils % (Auto) 4.4 % (0.0-7.0); Granulocytes % (Auto) 67.7 % (38.0-78.0); Lymphocytes # (Auto) 1.9 K/mcL (1.5-4.8); Lymphocytes % (Auto) 20.3 % (15.5-49.0); Mean Cell Volume 82.8 fL (80.0-100.0); Mean Corpuscular HGB Conc 35.2 g/dL (31.0-36.0); Mean Corpuscular Hemoglobin 29.1 pg (26.0-34.0); Monocytes # (Auto) 0.7 K/mcL (0.1-0.9); Monocytes % (Auto) 7.3 % (1.0-12.0); Platelet Count 156 K/mcL (140-440); Red Cell Distribution Width 12.1 % (11.5-14.5)
[2017-01-25] MEDS ORDERED: LORazepam 2 MG/ML VIAL IV PRN (09:57)
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
[2017-01-25] MEDS ORDERED: LIDOCAINE PATCH TOPICAL PRN (18:00)
[2017-01-25] MEDS: ACETAMINOPHEN 325 MG TABLET PO PRN (20:34)
[2017-01-25] MEDS: NORTRIPTYLINE 10 MG CAPSULE PO SCH (20:34)
[2017-01-25] MEDS: SENNOSIDES 1 TABLET PO SCH (20:35)
[2017-01-26] MEDS: PANTOPRAZOLE 40 MG VIAL IV SCH (07:50)
[2017-01-26] MEDS: 0.9 % SODIUM CHLORIDE 10 ML SYRINGE IV SCH ×3 (07:50→20:43)
[2017-01-26] MEDS: ASPIRIN 325 MG ENTERIC COATED TABLET PO SCH ×2 (07:50→20:41)
[2017-01-26] MEDS: DOCUSATE SODIUM 100 MG CAPSULE PO SCH ×2 (07:50→20:41)
[2017-01-26] MEDS: LEVOTHYROXINE SODIUM 112 MCG TABLET PO SCH (07:50)
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
--- NOTE | 2017-01-26 11:58 | Orthopedic Progress Note ---
Subjective Patient information: Note initiated : 01/26/17 at 11:55 am Service Date, if different from initiated Date: [] Patient: Jackie Yancey 76 y/o F admitted on 01/22/17 for Left Total Knee Arthroplasty *Depuy*. Chief Complaint: [] Principal diagnosis: s/p L total knee Interval history: no complaints, pain controlled Objective Vital signs: Vital Signs Temp Pulse Resp BP BP Pulse Ox 01/26/17 07:18 98.1 F 20 144/87 97 01/26/17 04:10 97.8 F 105 H 16 145/92 97 01/26/17 01:30 97.8 F 100 H 20 139/75 95 01/25/17 23:55 16 01/25/17 20:30 99.6 F H 109 H 20 144/84 97 01/25/17 17:00 96 01/25/17 16:53 96.7 F L 20 133/78 96 Intake and Output 01/25/17 01/26/17 01/26/17 21:59 05:59 13:59 Intake Total 230 / 230 30 / 30 800 / 800 Output Total 850 / 850 700 / 700 500 / 500 Balance -620 / -620 -670 / -670 300 / 300 Intake: Oral 230 / 230 30 / 30 800 / 800 Output: Void Amount 850 / 850 700 / 700 500 / 500 Other: Meal Dinner Breakfast Percent of Meal Consumed 50% 100% Feeding Ability Independent Independent # Voids 1 1 # Bowel Movements 1 1 Weight 165 lb 8 oz Intake & Output: Intake & Output 01/25/17 01/26/17 01/26/17 21:59 05:59 13:59 Intake Total 230 / 230 30 / 30 800 / 800 Output Total 850 / 850 700 / 700 500 / 500 Balance -620 / -620 -670 / -670 300 / 300 Weight 165 lb 8 oz Intake: Oral 230 / 230 30 / 30 800 / 800 Output: Void Amount 850 / 850 700 / 700 500 / 500 Other: Meal Dinner Breakfast Percent of Meal Consumed 50% 100% Feeding Ability Independent Independent # Voids 1 1 # Bowel Movements 1 1 Dressing: Yes clean, Yes dry, Yes intact Neurological exam IM: Yes alert - Labs CBC & BMP: 01/26/17 08:06 01/24/17 04:53 Labs: Orthopedic Labs 01/17/17 13:37 PT 13.7 INR 1.0 01/26/17 01/25/17 01/25/17 08:06 04:25 04:25 Hgb 10.6 L 9.6 L 9.3 L Hct 32.1 L 27.3 L 26.9 L 01/24/17 01/23/17 01/23/17 04:53 20:32 13:48 Hgb 10.0 L 10.0 L 10.6 L Hct 29.8 L 30.2 L 31.8 L 01/17/17 13:37 Hgb 13.8 Hct 42.1 Assessment and Plan (1) Total knee replacement status POD#4 s/p L TKA-had confusion, but improved -PT -awaiting placement in SNF on Saturday Status: Acute
[2017-01-26] MEDS: NORTRIPTYLINE 10 MG CAPSULE PO SCH (20:41)
[2017-01-26] MEDS: SENNOSIDES 1 TABLET PO SCH (20:41)
[2017-01-26] MEDS: ACETAMINOPHEN 325 MG TABLET PO PRN (22:07)
[2017-01-27] MEDS: ASPIRIN 325 MG ENTERIC COATED TABLET PO SCH ×2 (07:16→20:11)
[2017-01-27] MEDS: PANTOPRAZOLE 40 MG VIAL IV SCH (07:16)
[2017-01-27] MEDS: LEVOTHYROXINE SODIUM 112 MCG TABLET PO SCH (07:16)
[2017-01-27] MEDS: DOCUSATE SODIUM 100 MG CAPSULE PO SCH ×2 (07:16→20:11)
[2017-01-27] MEDS: 0.9 % SODIUM CHLORIDE 10 ML SYRINGE IV SCH ×3 (08:01→20:12)
--- NOTE | 2017-01-27 09:39 | Orthopedic Progress Note ---
Orthopedics - Auxillary Note - Subjective Patient Information: Note initiated : 01/27/17 at 9:37 am Service Date, if different from initiated Date: [] Patient: Jackie Yancey 76 y/o F admitted on 01/22/17 for Left Total Knee Arthroplasty *Depuy*. Chief Complaint: mild to moderate pain. there is bloody drainage from the wound confined under the tegaderm. nvi-distal Vital Signs Temp Pulse Resp BP BP Pulse Ox 01/27/17 06:51 98.0 F 16 150/87 97 01/27/17 04:00 98.2 F 92 H 18 142/74 97 01/27/17 00:00 98.2 F 94 H 18 142/81 98 01/26/17 20:00 98.8 F 98 H 18 146/83 98 01/26/17 16:00 98.5 F 18 148/73 98 01/26/17 12:00 96.5 F L 18 135/80 91 Intake and Output 01/26/17 01/27/17 01/27/17 21:59 05:59 13:59 Intake Total 1080 / 1080 300 / 300 240 / 240 Output Total Balance 1079 / 1079 300 / 300 240 / 240 Intake: Oral 1080 / 1080 300 / 300 240 / 240 Output: Void Amount Other: Meal Dinner Breakfast Percent of Meal Consumed 100% 100% Feeding Ability Independent # Voids 1 1 Weight 166 lb s/p L total knee arthroplasty-stable will change tegaderm over the incision today. will also reinforce the dermabond with steri-stripes at the distal incision site. mobilize with PT
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
[2017-01-27] MEDS: NORTRIPTYLINE 10 MG CAPSULE PO SCH (20:11)
[2017-01-27] MEDS: SENNOSIDES 1 TABLET PO SCH (20:11)
[2017-01-27] MEDS: ACETAMINOPHEN 325 MG TABLET PO PRN (23:27)
[2017-01-28] MEDS: LEVOTHYROXINE SODIUM 112 MCG TABLET PO SCH (07:30)
[2017-01-28] MEDS: 0.9 % SODIUM CHLORIDE 10 ML SYRINGE IV SCH (07:34)
[2017-01-28] MEDS: PANTOPRAZOLE 40 MG VIAL IV SCH (07:34)
[2017-01-28] MEDS: ASPIRIN 325 MG ENTERIC COATED TABLET PO SCH (09:20)
[2017-01-28] MEDS: DOCUSATE SODIUM 100 MG CAPSULE PO SCH (09:20)
--- NOTE | 2017-02-07 08:54 | Discharge Summary ---
DATE OF ADMISSION: 01/22/2017 DATE OF DISCHARGE: 01/28/2017 DATE OF ADMISSION: 01/22/2017 DATE OF DISCHARGE: 01/28/2017 ADMISSION DIAGNOSIS: Left knee osteoarthrosis. DISCHARGE DIAGNOSIS: Left knee osteoarthrosis. HISTORY OF PRESENT ILLNESS: The patient had suffered from a long history of left knee osteoarthrosis that had failed conservative management. She elected to undergo a left total knee arthroplasty for improved function and pain relief. The patient was admitted on the day of procedure. She underwent the procedure and was transferred to the floor for IV pain medication, IV antibiotics and physical therapy. Upon being admitted to the floor, she did suffer from delirium. She had __ as well as memory loss and was confused about where she was. Hospitalist was then consulted. The patient was treated appropriately by Hospitalist, including decreasing her __ pain medication. After several days she did recover her memory and was less confused. She was then [facility]. She will follow up with [facility] in 10 to 14 days. She will also follow up with her PCP. VITAL SIGNS: Pertinent vital signs at the time of discharge were temperature of 97.9, heart rate of 97, respiratory rate of 20, blood pressure of 144/85. LABORATORY DATA: Pertinent lab work was hemoglobin 10.6, hematocrit 32.1. TATYANA:farnaz Job ID: [id number] Doc ID: [id number] Saul Dubose PA-C
== END 2017-01-28 10:27 | DRG 470 ==
LOC: MEDSUR 09:00
PROVIDERS: ADMIT Orthopaedic Surgery Sports Medicine; ATTEND Orthopaedic Surgery Sports Medicine